=== PATIENT | female | born 1940 | race Caucasian/White ===

== ENCOUNTER → 2021-03-14 | Outpatient (CLI) | payer OTHER | END | disposition home or self-care (01) | LOC: SONOGRAMA 13:36 | PROVIDERS: ATTEND Urology | DX: C64.2 Malignant neoplasm of left kidney, except renal pelvis (principal) ==

== ENCOUNTER 2021-08-18 14:45 | Inpatient (IN) | payer OTHER ==
[~2021-08-18] VITALS: Ht 137.2 cm; Wt 61.7 kg
[2021-08-18] MEDS ORDERED: COZAAR50 MG PO (15:48)
[2021-08-18] MEDS ORDERED: ZOLOFT100 MG PO (15:48)
[2021-08-18] MEDS ORDERED: REFRESH TEARS15 ML OP (15:49)
[2021-08-18] MEDS ORDERED: [UNRECOGNIZED DRUG - OTHER] PO (15:49)
[2021-08-18] MEDS ORDERED: PEPCID AC10 MG PO (15:49)
== END 2021-08-26 09:58 | disposition home or self-care (01) | DRG 658 ==
LOC: O/R 08-24 06:15 → SURH 08-24 07:00 → SURG 08-24 11:38 → SURH 08-24 14:45 → SURG 08-26 09:58
PROVIDERS: ADMIT Urology; ATTEND Urology
PROC: 0TB74ZZ Excision of Left Ureter, Percutaneous Endoscopic Approach (ICD-10-PCS; 2021-08-24)
PROC: 0GT24ZZ Resection of Left Adrenal Gland, Percutaneous Endoscopic Approach (ICD-10-PCS; 2021-08-24)
PROC: 0TT14ZZ Resection of Left Kidney, Percutaneous Endoscopic Approach (ICD-10-PCS; principal; 2021-08-24 07:00)
DX: C64.2 Malignant neoplasm of left kidney, except renal pelvis (principal)

== ENCOUNTER 2022-06-16 10:27 | Outpatient (CLI) | payer OTHER ==
[~2022-06-16 10:27] MED LIST: COZAAR50 MG PO; PEPCID AC10 MG PO; REFRESH TEARS15 ML OP; ZOLOFT100 MG PO; [UNRECOGNIZED DRUG - OTHER] PO
== END 2022-06-16 10:38 | disposition home or self-care (01) ==
LOC: MRI 10:27
PROVIDERS: ATTEND Urology
DX: C64.2 Malignant neoplasm of left kidney, except renal pelvis (principal)
CPT/HCPCS: 72195; 74181